=== PATIENT | female | born 1990 | race Caucasian/White ===

== ENCOUNTER 2022-04-13 22:22 | Emergency (ER) | payer SELFPAY ==
[~2022-04-13] VITALS: Ht 167.6 cm; Wt 81.6 kg
[2022-04-13 22:37] VITALS: BP 115/73
--- NOTE | 2022-04-13 22:46 | NUR ---
COVID [facility] SENT TO LAB
== END 2022-04-13 23:56 ==
LOC: ER 22:32
DX: Z02.89 Encounter for other administrative examinations (principal); Z20.822 Contact with and (suspected) exposure to COVID-19; F17.200 Nicotine dependence, unspecified, uncomplicated
CPT/HCPCS: 99283; 87426; C9803